=== PATIENT | female | born 1975 | race Caucasian/White ===

== ENCOUNTER 2020-05-14 05:45 | Day surgery (SDC) | payer OTHER ==
[~2020-05-14] VITALS: Ht 167.6 cm; Wt 100.3 kg
[2020-05-14] MEDS ORDERED: LACTATED RINGERS 1,000 ML IV SCH (06:04)
[2020-05-14] MEDS ORDERED: BUPIVACAINE/EPI 0.5% 1:200K ONE (06:08)
[2020-05-14] MEDS ORDERED: HEPARIN 1,000 UNITS/ML, 10ML ONE (06:08)
[2020-05-14] MEDS ORDERED: HEPARIN 5,000 UNITS/ML, 1ML ONE (06:08)
[2020-05-14 06:14] VITALS: BP 135/83
[2020-05-14] MEDS ORDERED: no meds (06:19)
[2020-05-14] MEDS ORDERED: CHLORHEXIDINE 15 ML UDC MM ONE (06:30)
[2020-05-14] MEDS ORDERED: PLEASE ENTER HEIGHT AND WEIGHT MC SCH (06:30)
[2020-05-14] MEDS ORDERED: PLEASE ENTER ALLERGIES MC SCH (06:30)
[2020-05-14 06:39] LABS: HCG UR SG 1.011 (1.003-1.030)
[2020-05-14] MEDS ORDERED: ROCURONIUM 10MG/ML,5ML ONE (06:41)
[2020-05-14] MEDS ORDERED: SUCCINYLCHOLINE 20 MG/ML, 10ML ONE (06:41)
[2020-05-14] MEDS ORDERED: PROPOFOL 10 MG/ML, 20ML ONE (06:41)
[2020-05-14] MEDS ORDERED: LIDOCAINE 2% 100MG/5ML SYRINGE ONE (06:42)
[2020-05-14] MEDS ORDERED: EPHEDRINE 50 MG/ML, 1ML ONE (06:42)
[2020-05-14] MEDS ORDERED: PHENYLEPHRINE 10 MG/ML ONE (06:43)
[2020-05-14] MEDS ORDERED: MIDAZOLAM 1 MG/ML, 2ML ONE (07:00)
[2020-05-14] MEDS ORDERED: CEFAZOLIN 1,000 MG ONE (07:00)
[2020-05-14] MEDS ORDERED: FENTANYL PF 100 MCG/2ML ONE (07:01)
[2020-05-14] MEDS ORDERED: SUGAMMADEX 200 MG/2 ML IVPush ONE (07:52)
[2020-05-14] MEDS ORDERED: DEXAMETHASONE 4 MG/ML, 1ML ONE (07:52)
[2020-05-14] MEDS ORDERED: ONDANSETRON 2MG/ML, 2ML ONE (07:52)
[2020-05-14] MEDS ORDERED: OXYcodone 5 MG/5 ML ORAL.SOL UDC PO PRN (08:30)
[2020-05-14] MEDS ORDERED: HYDROcodone/APAP 7.5-325MG/15ML UDC PO PRN (08:30)
[2020-05-14] MEDS ORDERED: morphine SULFATE 10 MG/ML, 1ML IVPush PRN (08:30)
[2020-05-14] MEDS ORDERED: HYDROmorphone 1 MG/ML, 1ML INJ IVPush PRN (08:30)
[2020-05-14] MEDS ORDERED: ACETAMINOPHEN 325 MG TABLET PO PRN (08:30)
[2020-05-14] MEDS ORDERED: FENTANYL PF 100 MCG/2ML IV PRN (08:30)
== END 2020-05-14 09:30 | disposition home or self-care (01) ==
LOC: OUT 05:45
PROVIDERS: ATTEND Surgery
DX: C20 Malignant neoplasm of rectum (principal); Z11.59 Encounter for screening for other viral diseases; C77.5 Secondary and unspecified malignant neoplasm of intrapelvic lymph nodes
CPT/HCPCS: 36415; 36561; 71045; 77001; 81025; 87635; C1788; J0330; J0690; J1100; J1644; J2250; J2370; J2405; J2704; J3010; J7120